=== PATIENT | male | born 1990 | race African-American/Black ===

== ENCOUNTER 2018-07-24 06:30 | Day surgery (SDC) | payer OTHER ==
[2018-07-15 12:39] VITALS: BMI 27.2
[2018-07-24] MEDS ORDERED: SUCCINYLCHOLINE CHLORIDE 200 MG/10 ML VIAL ONE (07:08)
[2018-07-24] MEDS ORDERED: PROPOFOL 20 ML ONE (07:08)
[2018-07-24] MEDS ORDERED: EPINEPHrine 1:1,000 1 MG/1 ML - 30ML VIAL (INJECTION) ONE (07:09)
[2018-07-24] MEDS ORDERED: BUPIVACAINE HCL/PF (5 MG/ML) 30 ML VIAL IJ ONE (07:33)
[2018-07-24] MEDS ORDERED: DEXAMETHASONE SOD PHOSPHATE/PF 10 MG/ML SDV ONE (07:33)
[2018-07-24] MEDS ORDERED: MIDAZOLAM HCL 2 MG/2 ML SINGLE DOSE VIAL ONE (07:33)
--- NOTE | 2018-07-24 07:40 | OP ---
Operative Note - Note: Operative Date: 07/24/18 Pre-Operative Diagnosis: left knee ACL tear Operation: left knee ACL reconstruction with patellar tendon autograft Implants: arthrex kraig [place] Post-Operative Diagnosis: Same as Pre-op Surgeon: Sonny Tamayo Manager Financial: Becka Adrian Anesthesiologist/LINEN ROOM HOUSEPERSON: Cayla Ruelas Anesthesia: General, Fractional Operative Report Dictated: Yes
[2018-07-24] MEDS ORDERED: ceFAZolin SODIUM 1 GM VIAL ONE (08:14)
[2018-07-24] MEDS ORDERED: oxyCODONE HCL 5 MG TABLET PO PRN (09:44)
[2018-07-24] MEDS ORDERED: ONDANSETRON 4 MG/2 ML VIAL IVPUSH PRN (09:44)
[2018-07-24] MEDS ORDERED: LACTATED RINGERS SOLUTION 1,000 ML IV SCH (09:45)
--- NOTE | 2018-07-24 11:13 | SURG ---
Surgery Crepe Sole Wire Brusher Note Crepe Sole Wire Brusher: Becka Adrian PA-C Date of Service: 07/24/18 Diagnosis: left ACL rupture Procedure: left knee ACL reconstruction with patellar tendon autograft I was present for the entirety of the operative procedure. For further detail, please refer to operative report. Visit type - Case Type Case Type: Scheduled - Emergency Emergency Visit: No - New patient This patient is new to me today: Yes Date on this admission: 07/24/18
--- NOTE | 2018-07-24 11:46 | OP ---
DATE OF OPERATION: 07/24/2018 PREOPERATIVE DIAGNOSIS: Left anterior cruciate ligament rupture. POSTOPERATIVE DIAGNOSIS: Left anterior cruciate ligament rupture. PROCEDURE: Left knee anterior cruciate ligament reconstruction using bone-patellar bone autograft. SURGEON: Andrew Ba MD CLIENT ANALYST: ISAK Tavera whose skillful assistance was necessary for the safe and timely performance of this procedure. Ms. Adrian was able to help procedure positioning, retraction, assist in graft harvest, and graft preparation as well as the insertion of the graft and fixation of the hardware. She was able to drive the camera. IMPLANTS: Arthrex TightRope x2. TOURNIQUET TIME: An hour and 7 minutes. POSTOPERATIVE CONDITION: Stable. COMPLICATIONS: None. INDICATIONS: This is a pleasant gentleman who had been suffering from knee instability. MRI demonstrated ACL rupture. Treatment options including nonoperative versus operative management were reviewed. Operative risks were reviewed in detail including bleeding, infection, neurovascular injury, need for further surgery, postoperative pain and stiffness, persistent instability, progression of osteoarthritis. We discussed medical risks such as heart attack, stroke, DVT, PE, and . We discussed the use of perioperative antibiotic and DVT prophylaxis. We discussed the postoperative rehabilitation protocol. I addressed all of the patient's questions and concerns. He voiced understanding and elected to proceed. DESCRIPTION OF PROCEDURE: The patient was brought to the operating room after regional block was administered in the preoperative holding area. We administered spinal anesthesia. The left lower extremity was then prepped and draped in the usual sterile fashion. Preoperative dose of antibiotics was given, and the usual time-out procedure was performed. Examination of the knee demonstrated positive Ferdinand, positive pivot shift. There was 1+ LCL, and this was symmetric contralateral. Of note, the right knee did have 1+ Ferdinand as well. The decision was now made to perform a graft harvest. Incision was made through the skin through subcutaneous tissue over the patella tendon. Blunt spreading was used to expose the peritenon, which was spread along its fibers exposed the patellar tendon. The middle 1/3 of the patellar tendon was marked. A catamaran blade was then used to create a 10-mm tract to the patellar tendon. A 20-mm and 10-mm bone block were then marked out on either end. The oscillating saw was then used to retrieve the bone blocks. Any remaining soft tissue attachments were removed. The graft was then retrieved out of the body. It was prepared on the back table onto 2 TightRopes. Concurrently, the knee was examined under arthroscopy. Utilizing a previous incision, 2 portals were made one medial and one lateral. The arthroscope was passed through the knee. Examination of the patellofemoral joint demonstrated some partial thickness chondral fraying. Passing the arthroscope down through the notch demonstrated a complete ACL rupture. The PCL was seen to be intact. The arthroscope was passed into the medial compartment. Here the medial compartment demonstrated some transverse tissues within the femoral cartilage, although no unstable plaque was noted. The tibial side was unremarkable. The meniscus was unremarkable. The meniscus was probed and found to be stable. Examination of the lateral compartment demonstrated no articular lesion and no meniscal lesions here as well. The arthroscope was then passed back into the notch. Here the ACL stump was debrided. A notchplasty was performed as there was some notch stenosis posteriorly. This was done using a bur. The femoral drill guide was now inserted onto the anatomic origin of the ACL. The was confirmed to be satisfactory. A small incision was made laterally in the femur. The trocar was passed down to the level of the bone. FlipCutter was now drilled into the knee. FlipCutter placement was verified and was satisfactory. FlipCutter was toggled, and a 10-mm x 30-mm socket was created on the femoral side. The passing suture was placed. Attention was then turned to the tibial side. A tibial guide was inserted onto the anatomic origin as well. The trocar was passed through the previous incision, and the tibial FlipCutter was drilled in. Here, a 35-mm x 10-mm socket was created. Passing sutures were placed. The medial portal was now debrided and enlarged to allow for graft passage. Both sutures were retrieved out the medial portal. The TightRope was now passed through the femoral socket, and the button was seated firmly on the femoral cortex. The graft was then drawn into the femoral socket. The tibial sutures were then shuttled through, and a bone block was drawn into the tibial side. The knee was now cycled. A button was then loaded onto the sutures, and a button was tightened down with the knee in full extension. The femoral sutures were then toggled to bring the graft under tension. Good tension was achieved on arthroscopic probing. The extra sutures were now tied. A Ferdinand was performed. There was 1+ Ferdinand, which was now symmetric through the contralateral. Excess fluid was now drawn from the knee. The prepatellar tissues were approximated using 0 Vicryl. The subcutaneous tissue was approximated using 2-0 Vicryl. The skin was closed using 3-0 nylon. Sterile dressings were placed. The patient was placed in a knee immobilizer. He was transferred to the recovery room in stable condition. ANDREW BA M.D. [id number]
[2018-07-24 13:18] VITALS: TEMP 97.6
[2018-07-24 13:25] VITALS: BP 148/87; PULSE 64
== END 2018-07-24 13:40 | disposition home or self-care (01) ==
LOC: FASU 06:30
PROVIDERS: ATTEND Orthopaedic Surgery Sports Medicine
PROC: 0LBR0ZZ Excision of Left Knee Tendon, Open Approach (ICD-10-PCS; 2018-07-24)
PROC: 0MRP47Z Replacement of Left Knee Bursa and Ligament with Autologous Tissue Substitute, Percutaneous Endoscopic Approach (ICD-10-PCS; principal; 2018-07-24 08:30)
DX: S83.512A Sprain of anterior cruciate ligament of left knee, initial encounter (principal); X58.XXXA Exposure to other specified factors, initial encounter; Y93.9 Activity, unspecified; Y92.9 Unspecified place or not applicable
CPT/HCPCS: 94760

== ENCOUNTER 2018-08-06 10:19 | Day surgery (SDC) | payer OTHER ==
[2018-08-04 14:05] VITALS: BMI 27.2
[2018-08-06] MEDS ORDERED: DEXAMETHASONE SOD PHOSPHATE/PF 10 MG/ML SDV ONE (12:17)
[2018-08-06] MEDS ORDERED: BUPIVACAINE HCL/PF (5 MG/ML) 30 ML VIAL IJ ONE (12:17)
[2018-08-06] MEDS ORDERED: MIDAZOLAM HCL 2 MG/2 ML SINGLE DOSE VIAL ONE ×3 (12:17→12:30)
[2018-08-06] MEDS ORDERED: EPINEPHrine 1:1,000 1 MG/1 ML - 30ML VIAL (INJECTION) ONE (12:28)
--- NOTE | 2018-08-06 12:36 | OP ---
Operative Note - Note: Operative Date: 08/06/18 Pre-Operative Diagnosis: s/p left acl reconstruction with undocked bone block Operation: left acl revision Implants: arthrex tight rope x1 w button transportation engineer. biocomposite interference screw 8x28 Post-Operative Diagnosis: Same as Pre-op Surgeon: Sonny Tamayo Box Brander: Carlos Jane Anesthesiologist/HOMICIDE SQUAD LIEUTENANT: Cayla Ruelas Anesthesia: Fractional Estimated Blood Loss (mls): 100 Operative Report Dictated: Yes
[2018-08-06] MEDS ORDERED: LIDOCAINE HCL/PF 2% SDV 5ML VIAL ONE ×2 (12:48→13:01)
[2018-08-06] MEDS ORDERED: PROPOFOL 20 ML ONE ×2 (12:48)
[2018-08-06] MEDS ORDERED: ONDANSETRON 4 MG/2 ML VIAL ONE (13:01)
[2018-08-06] MEDS ORDERED: LIDOCAINE HCL 2% JELLY (5 ML/TUBE) ONE (13:01)
[2018-08-06] MEDS ORDERED: DEXAMETHASONE SOD PHOSPHATE 4 MG/1 ML VIAL ONE (13:01)
[2018-08-06] MEDS ORDERED: KETOROLAC TROMETHAMINE 30 MG/1 ML VIAL ONE (13:01)
[2018-08-06] MEDS ORDERED: ceFAZolin SODIUM 1 GM VIAL ONE (13:01)
[2018-08-06] MEDS ORDERED: ROCURONIUM BROMIDE 50 MG/5 ML VIAL ONE (15:15)
[2018-08-06] MEDS ORDERED: NEOSTIGMINE METHYLSULFATE 0.5 MG/ML - 10 ML MDV ONE (15:46)
[2018-08-06] MEDS ORDERED: ONDANSETRON 4 MG/2 ML VIAL IVPUSH PRN (16:31)
[2018-08-06] MEDS ORDERED: oxyCODONE HCL 5 MG TABLET PO PRN ×2 (16:31)
[2018-08-06] MEDS ORDERED: PROMETHAZINE HCL 25 MG/1 ML VIAL IVPB PRN (16:31)
[2018-08-06] MEDS ORDERED: ACETAMINOPHEN 325 MG TABLET (FP) PO SCH (16:45)
[2018-08-06 17:48] VITALS: TEMP 98
--- NOTE | 2018-08-06 18:53 | OP ---
DATE OF OPERATION: 08/06/2018 PREOPERATIVE DIAGNOSIS: Left knee anterior cruciate ligament rupture. POSTOPERATIVE DIAGNOSIS: Left knee anterior cruciate ligament rupture. PROCEDURE: Left knee anterior cruciate reconstruction revision. SURGEON: Sonny Tamayo M.D. CARTRIDGE ASSEMBLING MACHINE ADJUSTER: Harris Ramesh, whose skillful assistance was necessary for the safe and timely performance of this procedure. Mr. Jane was able to help to provide limb positioning, retraction, driving the camera, assistance retrieving the previous graft, re-preparing the graft as well as insertion of the graft and insertion of graft fixation hardware. ANESTHESIA: Regional plus general. POSTOPERATIVE CONDITION: Stable. COMPLICATIONS: None. IMPLANTS: Arthrex Tightrope x1, Arthrex Biocomposite interference screw 8 x 28. INDICATION: This is a 27-year-old gentleman who 2 weeks ago underwent ACL reconstruction. On postoperative radiographs, it was found that his femoral bone block was not positioned correctly. The decision was made with the patient that the best option would be revision surgery. Treatment options including continued nonoperative versus operative management were reviewed. Operative risks were reviewed in detail including bleeding, infection, neurovascular injury, need for further surgery, postoperative pain and stiffness, recurrent instability, graft re-ruptured, post traumatic osteoarthritis. I reviewed medical risks such as heart attack, stroke, DVT, PE and . I addressed all the patient's questions and concerns. He voices understanding and elected to proceed. DESCRIPTION OF PROCEDURE: Patient was brought to the operating room after administration of regional block in the preoperative holding area. The left lower extremity was prepped and draped in usual sterile fashion. A preoperative dose of antibiotics was given, and the usual timeout procedure was performed. The previously made incision over the femur was the first one to be attended to. The incision was opened. It was extended both proximally and distally. One sample driller was used to expose the iliotibial band. Iliotibial band was then split in line with its fibers, extending the previous entry point for the trocar. Button was identified. A 15 blade was used to sever the sutures over the button. The button was then retrieved out of the body. At this point the wound was exsanguinated and tourniquet was inflated to 250 mmHg. The anterior incision was now reopened using the 15 blade. This too was extended both proximally and distally. Once spreading was used to expose the patella. The dissection was then carried out towards the button. This button too was identified, sutures were cut, and the button was retrieved. was now inserted into the knee. Utilizing a probe, the graft was freed on the femoral side, and this was retrieved out to the medial portal. The tibial side now had a guidepin placed in the center of the hole. The second hand paper machine was then used to create a 10-mm hole in the anterior cortex. The [place] was then placed into the hole and passed around the bone block, freeing it up. The entire graft was now retrieved out of medial portal. Graft was in overall good condition. On the back table it was loaded onto a new Tightrope and the distal end was re-whip stitched. The reamer was then passed all the way up the tibial tunnel, and the passing suture was then placed. The graft was then drawn into the knee, passing the button out through the incision laterally in the distal thigh. The button etch operator semiconductor wafers was loaded, and the button was seated femoral cortex. The graft was now toggled up, however despite using a probe, the graft repeated passage across the tunnel and lodging in the aperture rather than truly entering a femoral tunnel. The second Tightrope is now removed. Decision is now made to seat the suture more distally, more towards the end of the femoral bone plug. A 2-mm drill bit was used to do this. The graft was then passed again in similar fashion. This time the turn was made, and the graft was seen to go directly into the femoral tunnel. The knee was now cycled several times. A fluoroscopy device was used to insure proper graft placement. The guidepins for the tibial side was now placed anterior to the graft. A Biocomposite interference 8 x 28 was now inserted. The interference screw was able to obtain good fixation. Ferdinand maneuver is now performed. Knee was stable. To backup, provide fixation of the tibial side, the Swivelock anchor was drilled and then used to secure the additional sutures. At this point, the wounds were irrigated. The portal sites were closed using 0 Vicryl. Subcutaneously deep 3-0 Vicryl was use to approximate the tissue. More superficially 3-0 Vicryl was used. 4-0 nylon was then used to close the wounds. Sterile dressings were placed. The tourniquet was let down after 2 hours. The patient was extubated and transferred to recovery room in stable condition. Jenna [id number]
[2018-08-06 19:23] VITALS: BP 137/83; PULSE 82
--- NOTE | 2018-08-12 16:26 | PATH ---
Surgical Pathology Report Patient Name: KOBY DELGADO Med. Rec. #: [id number] /Age/Gender: 1990 (Age: 27) / M Account: [id number] Location: [facility] AMBULATORY Taken: 08/06/2018 Received: 08/06/2018 Reported: 08/12/2018 Physicians: Sonny Tamayo M.D. Specimen(s) Received LEFT KNEE HARDWARE Clinical History Misposition of femoral bone block Final Diagnosis LEFT KNEE HARDWARE, REMOVAL: HARDWARE, DESCRIBED (GROSS EXAMINATION ONLY). Electronically Signed Becka Cox M.D. Gross Description Received without fixative, labeled "left knee hardware" are two pieces of metallic hardware, each measuring 1.4 x 0.3 cm. For gross examination only. ebram/08/08/2018
== END 2018-08-06 19:05 | disposition home or self-care (01) ==
LOC: FASU 10:19
PROVIDERS: ATTEND Orthopaedic Surgery Sports Medicine
PROC: 0QPD04Z Removal of Internal Fixation Device from Right Patella, Open Approach (ICD-10-PCS; 2018-08-06)
PROC: 0MQN0ZZ Repair Right Knee Bursa and Ligament, Open Approach (ICD-10-PCS; principal; 2018-08-06 13:24)
DX: S83.512D Sprain of anterior cruciate ligament of left knee, subsequent encounter (principal); X58.XXXD Exposure to other specified factors, subsequent encounter
CPT/HCPCS: 73560-TC-LT-FY; 88300-TC